=== PATIENT | female | born 1990 | race Hispanic/Latino ===

== ENCOUNTER 2016-06-03 21:05 | Inpatient (IN) | payer MEDICAID ==
[2016-06-03] MEDS ORDERED: FENTANYL 100 MCG/2 ML VIAL IV ONE (22:07)
[2016-06-03] MEDS ORDERED: ONDANSETRON HCL 4 MG/2 ML VIAL IV PRN (22:07)
[2016-06-03] MEDS ORDERED: LACTATED RINGERS 1,000 ML IV SCH (22:07)
[2016-06-03] MEDS ORDERED: HOME MEDICATION LIST NEEDED 1 EA EACH MISC ONE (22:07)
[2016-06-03] MEDS ORDERED: MISOPROSTOL 200 MCG TABLET PO PRN ×2 (22:07)
[2016-06-03] MEDS ORDERED: OXYTOCIN/NORMAL SALINE 30 UNIT/500 ML BAG IV SCH (22:07)
[2016-06-03] MEDS ORDERED: LIDOCAINE HCL/PF 1% 30 ML VIAL SUBCUT PRN (22:07)
--- NOTE | 2016-06-03 22:34 | PROGRESS NOTE:Antepartum ---
Assessment and Plan - Date of Encounter Date of Encounter: 06/03/16 (1) Normal first confirmed, currently in third trimester Status: Acute Assessment and plan: SROM since 9 pm. Starting to feel ctx. Plan for expectant management. If she does not go into labor will add pitocin but optimistic as she is starting to have mild contractions. 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 Her last menstrual period was September 12, 2015 and dates were confirmed with a 20 week ultrasound. She presented with spontaneous rupture of membranes at 9 PM. She describes clear fluid. No significant bleeding. She is just starting to have a few contractions that are mild and irregular. She said good movement. PAST MEDICAL HISTORY: none PAST SURGICAL HISTORY: none MEDICATIONS: vitamins NKDA SOCIAL HISTORY: no tobacco, alcohol, marijuana. 's [place] FAMILY HISTORY: parents are healthy labs: O positive, rubella immune, GPS negative, hepatitis B negative, HIV-negative, RPR nonreactive, when our glucose tolerance test was 65, quad screen was negative, GC and Chlamydia were both negative, Pap smear was normal, she received her flu vaccine January 06, 2016, Adacel vaccine was April 20, 2016. 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
[2016-06-04 00:23] LABS: BASOPHILS 0.2 % (0.0-2.0); EOSINOPHILS 0.6 % (0.0-6.0); EOSINOPHILS# 0.1 X 10^3uL (0.0-0.4); HEMATOCRIT 37.2 % (36.0-48.0); HEMOGLOBIN 12.6 g/dL (12.0-16.0); LYMPHOCYTES 20.4 % (20.0-40.0); LYMPHOCYTES# 2.1 X 10^3uL (0.8-3.8); MEAN CELL VOLUME 90.5 fL (80.0-100.0); MEAN CORPUS. HGB CONCENTRATION 33.8 g/dL (32.0-36.0); MEAN CORPUSCULAR HEMOGLOBIN 30.5 pg (29.0-35.0); MEAN PLATELET VOLUME 9.5 fL (7.4-10.4); MONOCYTES# 0.6 X 10^3uL (0.2-1.0); NEUTROPHILS 72.8 % (54.0-75.0); NEUTROPHILS# 7.4 X 10^3uL (2.6-6.7); PLATELET COUNT 209 X 10^3uL (130-440); RED BLOOD COUNT 4.11 X 10^6uL (4.20-6.10); RED CELL DISTRIBUTION WIDTH 11.8 % (11.5-14.5); WHITE BLOOD COUNT 10.2 X 10^3uL (3.9-10.7)
[2016-06-04 01:25] LABS: ABO GROUP TYPE O; ANTIBODY SCREEN NEGATIVE; RH TYPE POSITIVE
[2016-06-04] MEDS: FENTANYL 100 MCG/2 ML VIAL IV PRN ×4 (03:27→05:43)
--- NOTE | 2016-06-04 07:56 | PROCEDURE NOTE: Vaginal Del ---
OB Procedure Vaginal Delivery - Vaginal Delivery Estimated Gestational Age (weeks): 38 Delivery Presentation: vertex Delivery Position: ROT Heart Monitor: category I Intrapartum Events: none Delivery Induction: none Amniotic Fluid: clear Delivery Monitor: external FHT Delivery Method: Shoulders: without difficulty Placenta delivered: yes Delivery Placenta: spontaneous Delivery Cord: 3 Vessels Nuchal Cord # of Loops: 0 Cord clamped: Yes Cord blood obtained: Yes Episiotomy: none Delivery Laceration: periurethral laceration (left periurethral, not repaired) at 1 minute: 8 at 5 minutes: 9 Gender: Male Weight: 3.194 kg Estimate Blood Loss Delivery: 300cc Anesthesia: None Patient tolerated procedure: well Delivery Complications: Present: none Additional comments: 26-year-old at 38 weeks who presented with spontaneous rupture of membranes of clear fluid. She had no vaginal bleeding and good movement. Time of rupture was at 8:40 PM. Approximately 3 to 4 hours later she was in active labor. No augmentation agents were used. She had a category one tracing. She had a few doses of Fentanyl at 25 g. Her last dose was two hours prior to delivery. She was complete at 6:45 AM. I was a called and arrived shortly after. She pushed for 15 minutes and we delivered a viable male at 702. He was in an ROT position. He was placed on mom's abdomen for routine drying and stimulation. After approximately 2 minutes the cord was clamped twice by myself and cut by the father. A three vessel cord was noted. The placenta delivered 12 minutes after the infant. It was intact with no evidence of abruption. 3VC noted. Mom sustained a small left periurethral tear was not bleeding and therefore not repaired.
[2016-06-04] MEDS ORDERED: ACETAMINOPHEN 325 MG TABLET PO PRN (08:26)
[2016-06-04] MEDS ORDERED: DOCUSATE SODIUM 100 MG CAPSULE PO SCH (08:26)
[2016-06-04] MEDS ORDERED: LANOLIN CREAM 1 APP/7 GM TUBE TOPICAL PRN (08:26)
[2016-06-04] MEDS ORDERED: HC ACETATE/PRAMOXINE HCL FOAM 1 APPLIC APP RC PRN (08:26)
[2016-06-04] MEDS ORDERED: MAGNESIUM HYDROXIDE 30 ML UDC PO PRN (08:26)
[2016-06-04] MEDS ORDERED: BENZOCAINE/LANOLIN/ALOE 1 SPRAY BOTTLE TP PRN (08:26)
[2016-06-04] MEDS ORDERED: WITCH HAZEL 1 EACH MED..PAD TP PRN (08:26)
[2016-06-04] MEDS ORDERED: DIPHENHYDRAMINE 25 MG CAPSULE PO PRN (08:26)
[2016-06-04] MEDS ORDERED: HYDROcodone/APAP 5/325 MG 1 TAB TABLET PO PRN (08:26)
[2016-06-04] MEDS: IBUPROFEN 600 MG TABLET PO PRN ×2 (09:27→16:19)
[2016-06-04 23:52] VITALS: O2SAT 94
[2016-06-05 05:13] LABS: HEMATOCRIT 34.8 % (36.0-48.0); HEMOGLOBIN 11.8 g/dL (12.0-16.0)
[2016-06-05 08:13] VITALS: BP 126/70; PULSE 91; RESP 16; TEMP 98.2
--- NOTE | 2016-06-05 08:34 | DC SUMMARY: Obstetrical/GYN ---
Discharge Summary: Surg/OB Provider: Date of Admission: 06/03/16 Admitting Provider: BO VILLASENOR MD Attending Provider: BO VILLASENOR MD Discharging Provider: LATIA DIAZ MD Primary Care Provider: Discharge Date: 06/05/16 - Diagnosis (1) Normal first confirmed, currently in third trimester Status: Acute Hospital Course: Ms. AGUILAR is a 26 year old female admitted with SROM at 38 weeks. She went into labor on her own and delivered 10 hours later. She had a category I strip throughout. No fevers. GBS neg. Infant delivered in ROT position. Apgars 8, 9. Weight 3194 grams. Post she did well. No fevers. Hct went 37.2 ap to 34.8 pp. BF well. Lochia normal. 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 Discharge Exam - Latest Vital Signs and I&O Latest Vital Signs/I&O: Vital Signs Temp 36.8 C 06/05/16 08:00 Pulse 91 H 06/05/16 08:00 Resp 16 06/05/16 08:00 BP 126/70 06/05/16 08:00 Pulse Ox 94 06/05/16 08:00 Intake & Output 06/04/16 06/05/16 06/05/16 17:59 05:59 17:59 Output Total 2900 Balance -2900 Output: Urine 2900 Straight 700 Other: Urine Appearance Clear Clear Clear Urine Color Straight Yellow Stool Size Small Small Small Stool Characteristics Soft Soft Soft Voiding Method Toilet Toilet Toilet # Voids 1 - Exam Lungs: Bilateral: normal Heart Rhythm: Present: regular Heart sounds: Absent: Murrmur Extremities: Absent: tenderness (no cords, no erythema), edema Abdomen: Present: normal appearance Bowel sounds: present Uterus: Present: non tender Discharge Summary Data - Medication History Medication History: Home Medications Vit W-Ca,Fe,FA(<1 mg) [ Vitamins] 1 tab PO DAILY 05/27/16 Inpatient Medications 06/04/16 08:26 Acetaminophen [Tylenol] 650 mg PO Q6H PRN Benzocaine/Lanolin/Aloe [Dermoplast [place]] 1 spray TP PRN PRN Diphenhydramine [Benadryl] 50 mg PO HS PRN Docusate Sodium [Colace] 100 mg PO Q12H HYDROcodone/APAP 5/325 MG [[place]] 1 tab PO Q3H PRN Hc Acetate/Pramoxine HCl Foam [Proctofoam-Hc Foam] 1 applic RC PRN PRN Ibuprofen [Motrin] 600 mg PO Q6H PRN Lanolin Cream [Lansinoh] 1 shasha TOPICAL PRN PRN Magnesium Hydroxide [Milk of Magnesia] 30 ml PO PRN PRN Witch Loly [Tucks Take-Alongs] 1 each TP PRN PRN oxyCODONE HCL IR [Oxy Ir] 5 mg PO Q3H PRN Procedures and tests throughout hospitalization: Completed Lab Orders 06/03/16 23:30 ABO GROUP [HEM] Urgent ANTIBODY SCREEN [HEM] Urgent CBC AUTO DIF, MDIF/RMOR IF IND [HEM] Urgent RH TYPE [HEM] Urgent 06/05/16 05:05 HGB & HCT PANEL [HEM] AMDRAW Pending Orders 05/25/16 21:42 Resuscitation Status Routine 06/03/16 22:07 Admit: Inpatient Routine VTE Prophylaxis Scoring/ Ordering Routine Activity: Ambulate TOLERATED 06/04/16 08:26 Post Assessment PER PROTOCOL Vital Signs Q4H Acetaminophen [Tylenol] 650 mg PO Q6H PRN Benzocaine/Lanolin/Aloe [Dermoplast [place]] 1 spray TP PRN PRN Diphenhydramine [Benadryl] 50 mg PO HS PRN Docusate Sodium [Colace] 100 mg PO Q12H HYDROcodone/APAP 5/325 MG [[place]] 1 tab PO Q3H PRN Hc Acetate/Pramoxine HCl Foam [Proctofoam-Hc Foam] 1 applic RC PRN PRN Ibuprofen [Motrin] 600 mg PO Q6H PRN Lanolin Cream [Lansinoh] 1 shasha TOPICAL PRN PRN Magnesium Hydroxide [Milk of Magnesia] 30 ml PO PRN PRN Witch Loly [Tucks Take-Alongs] 1 each TP PRN PRN oxyCODONE HCL IR [Oxy Ir] 5 mg PO Q3H PRN 06/04/16 Breakfast Regular [DIET] Labs on day of discharge: Labs from last 24 hours 06/05/16 05:05 Hgb 11.8 L Hct 34.8 L
[2016-06-05] MEDS ORDERED: WARFARIN SODIUM 2 MG TABLET PO ONE (17:11)
== END 2016-06-05 13:15 | disposition home or self-care (01) | DRG 775 ==
LOC: NLCPRO 21:05 → NLC 21:06
PROVIDERS: ADMIT Obstetrics & Gynecology; ATTEND Obstetrics & Gynecology
PROC: 10E0XZZ Delivery of Products of Conception, External Approach (ICD-10-PCS; principal; 2016-06-03)
DX: O80 Encounter for full-term uncomplicated delivery (principal); Z3A.38 38 weeks gestation of pregnancy; Z37.0 Single live birth
CPT/HCPCS: 36415; 85014; 85018; 85025; 86850; 86900; 86901; J2405; J7120